=== PATIENT | female | born 1970 | race Caucasian/White ===

== ENCOUNTER → 2016-05-26 | Outpatient (CLI) | payer SELFPAY ==
--- NOTE | 2016-05-26 17:25 | RAD ---
EXAM DESCRIPTION: Wrist,Right 3 Views CLINICAL HISTORY: 45 years,Female ,RT WRIST PAIN M25.531 COMPARISON: None FINDINGS: The right wrist demonstrates no evidence of fractures or acute abnormalities. Soft tissues appear unremarkable. Joint spaces are unremarkable.. IMPRESSION: Unremarkable wrist. Electronically signed by: Darwin Glasgow MD 05/26/2016 5:24 PM CDT
== END | disposition home or self-care (01) ==
LOC: RAD 08:45
PROVIDERS: ATTEND Orthopaedic Surgery
DX: M25.531 Pain in right wrist (principal)